=== PATIENT | female | born 1980 | race American Indian/Alaskan Native ===

== ENCOUNTER 2017-09-18 11:30 | Emergency (ER) | payer OTHER ==
[~2017-09-18] VITALS: Ht 160 cm; Wt 83.5 kg
[~2017-09-18 11:30] MED LIST: Guaifenesin Dm118 ML PO; Pseudoephedrine30 MG PO
[2017-09-18 12:07] LABS: BASOPHILS ABSOLUTE AUTO 0.02 K/mm3 (0.00-0.23); BASOPHILS PERCENT AUTO 0 % (0-2); EOSINOPHILS ABSOLUTE AUTO 0.37 K/mm3 (0.00-0.68); EOSINOPHILS PERCENT AUTO 5 % (0-6); Hematocrit 30.3 % (33.0-51.0); Hemoglobin 9.2 g/dL (11.5-16.0); IMMATURE GRAN ABSOLUTE AUTO 0.02 K/mm3 (0.00-0.10); IMMATURE GRAN PERCENT AUTO 0 % (0-1); LYMPHOCYTES ABSOLUTE AUTO 1.87 K/mm3 (0.84-5.20); LYMPHOCYTES PERCENT AUTO 24 % (21-46); MONOCYTES ABSOLUTE AUTO 0.73 K/mm3 (0.16-1.47); MONOCYTES PERCENT AUTO 9 % (4-13); Mean Corpuscular HGB 24.3 pg (26.0-34.0); Mean Corpuscular HGB Conc 30.4 g/dL (31.5-36.5); Mean Corpuscular Volume 80 fL (80-100); Mean Platelet Volume 8.8 fL (9.1-12.4); NEUTROPHILS ABSOLUTE AUTO 4.76 K/mm3 (1.96-9.15); NEUTROPHILS PERCENT AUTO 61 % (41-73); Platelet Count 395 K/mm3 (150-400); RDW Coefficient Variation 15.3 % (11.7-14.2); RDW Standard Deviation 44.5 fL (35.1-46.3); Red Blood Cell Count 3.78 M/mm3 (3.80-5.20); White Blood Cell Count 7.77 K/mm3 (4.00-11.30)
[2017-09-18 12:29] LABS: Alanine Aminotransfer (ALT/SGP 13 U/L (12-78); Albumin, Blood 3.2 g/dL (3.4-5.0); Albumin/Globulin Ratio 0.8 (0.8-1.8); Alk Phos 69 U/L (50-136); Anion Gap 7 mmol/L (6-16); Aspartate Aminotrans (AST/SGOT 12 U/L (12-37); Bilirubin, Total 0.4 mg/dL (0.1-1.0); Blood Urea Nitrogen 7 mg/dL (8-24); Bun/Creatinine Ratio 11.9 (12.0-20.0); CO2, Blood 28 mmol/L (21-32); Calcium, Blood 8.3 mg/dL (8.5-10.1); Chloride, Blood 103 mmol/L (98-108); Creatinine, Blood 0.59 mg/dL (0.40-1.00); Globulin, Blood 4.1 g/dL (2.2-4.0); Glomerular Filtration Rate >60 (60-); Glucose, Blood 107 mg/dL (70-99); Potassium, Blood 3.3 mmol/L (3.5-5.5); Sodium, Blood 138 mmol/L (136-145); Total Protein, Blood 7.3 g/dL (6.4-8.2)
[2017-09-18 12:39] LABS: Source, Urine Clean Catch
[2017-09-18 12:49] LABS: Bilirubin, Urine Neg (Neg); Blood, Urine 5+ (Neg); Glucose Qualitative, Urine Neg (Neg); Ketones, Urine 2+ (Neg); Leukocyte Esterase, Urine 1+ (Neg); Nitrite, Urine Neg (Neg); Protein, Urine 2+ (Neg); Specific Gravity, Urine 1.025 (1.003-1.022); Urobilinogen, Urine 1+ (Normal)
[2017-09-18 12:51] LABS: Appearance, Urine Clear (Clear); Color, Urine Yellow (P-Yellow)
[2017-09-18 12:55] LABS: Bacteria Few /hpf; Mucus Heavy (0-Heavy); Red Blood Cells, Urine TNTC /hpf (0-2); Squamous Epithelial Cells Few /hpf (Few)
[2017-09-18] MEDS ORDERED: Percocet 5-3251 EACH PO (16:40)
[2017-09-18] MEDS ORDERED: Tylenol325 MG PO (16:40)
[2017-12-07] MEDS ORDERED: Norco 10-325 T1 EACH (14:38)
[2017-12-07] MEDS ORDERED: PROM25 (14:40)
[2017-12-07] MEDS ORDERED: ALPR1 (14:40)
== END 2017-09-18 17:03 | disposition home or self-care (01) ==
LOC: ER 11:30
PROVIDERS: Emergency Medicine
DX: R10.2 Pelvic and perineal pain (principal); D64.9 Anemia, unspecified; F17.210 Nicotine dependence, cigarettes, uncomplicated
CPT/HCPCS: 36415; 76830; 76856; 80053; 81001; 83690; 84702; 85025; 87086; 96374; 96375; 96376; 99284; J1170; J1885; J2405

== ENCOUNTER → 2017-10-20 | Outpatient (CLI) | payer OTHER ==
[~2017-10-20] MED LIST changes: +Percocet 5-3251 EACH PO; +Tylenol325 MG PO
[2017-10-20 16:31] LABS: BASOPHILS ABSOLUTE AUTO 0.05 K/mm3 (0.00-0.23); BASOPHILS PERCENT AUTO 1 % (0-2); EOSINOPHILS ABSOLUTE AUTO 0.31 K/mm3 (0.00-0.68); EOSINOPHILS PERCENT AUTO 3 % (0-6); Hematocrit 32.4 % (33.0-51.0); Hemoglobin 9.6 g/dL (11.5-16.0); IMMATURE GRAN ABSOLUTE AUTO 0.02 K/mm3 (0.00-0.10); IMMATURE GRAN PERCENT AUTO 0 % (0-1); LYMPHOCYTES ABSOLUTE AUTO 2.86 K/mm3 (0.84-5.20); LYMPHOCYTES PERCENT AUTO 31 % (21-46); MONOCYTES ABSOLUTE AUTO 0.69 K/mm3 (0.16-1.47); MONOCYTES PERCENT AUTO 8 % (4-13); Mean Corpuscular HGB 23.2 pg (26.0-34.0); Mean Corpuscular HGB Conc 29.6 g/dL (31.5-36.5); Mean Corpuscular Volume 79 fL (80-100); Mean Platelet Volume 9.1 fL (9.1-12.4); NEUTROPHILS ABSOLUTE AUTO 5.33 K/mm3 (1.96-9.15); NEUTROPHILS PERCENT AUTO 58 % (41-73); Platelet Count 475 K/mm3 (150-400); RDW Coefficient Variation 15.5 % (11.7-14.2); RDW Standard Deviation 44.4 fL (35.1-46.3); Red Blood Cell Count 4.13 M/mm3 (3.80-5.20); White Blood Cell Count 9.26 K/mm3 (4.00-11.30)
== END ==
LOC: LAB SHORT 15:03 → OLS 15:03
PROVIDERS: Nurse Practitioner Women's Health
DX: D50.8 Other iron deficiency anemias (principal); N92.1 Excessive and frequent menstruation with irregular cycle
CPT/HCPCS: 36415; 84443; 85025

== ENCOUNTER → 2017-11-23 | Outpatient (CLI) | payer OTHER | END | disposition home or self-care (01) | LOC: PLD 11:48 → LAB SHORT 11:48 | DX: N94.89 Other specified conditions associated with female genital organs and menstrual cycle (principal) | CPT/HCPCS: 88305 ==

== ENCOUNTER → 2018-03-17 | Outpatient (CLI) | payer OTHER ==
[~2018-03-17] MED LIST changes: +ALPR1; +Norco 10-325 T1 EACH; +PROM25
[2018-03-17 11:12] LABS: BASOPHILS ABSOLUTE AUTO 0.04 K/mm3 (0.00-0.23); BASOPHILS PERCENT AUTO 1 % (0-2); EOSINOPHILS ABSOLUTE AUTO 0.28 K/mm3 (0.00-0.68); EOSINOPHILS PERCENT AUTO 6 % (0-6); Hematocrit 35.7 % (33.0-51.0); Hemoglobin 11.1 g/dL (11.5-16.0); IMMATURE GRAN ABSOLUTE AUTO 0.01 K/mm3 (0.00-0.10); IMMATURE GRAN PERCENT AUTO 0 % (0-1); LYMPHOCYTES ABSOLUTE AUTO 1.24 K/mm3 (0.84-5.20); LYMPHOCYTES PERCENT AUTO 26 % (21-46); MONOCYTES ABSOLUTE AUTO 0.45 K/mm3 (0.16-1.47); MONOCYTES PERCENT AUTO 9 % (4-13); Mean Corpuscular HGB 23.6 pg (26.0-34.0); Mean Corpuscular HGB Conc 31.1 g/dL (31.5-36.5); Mean Corpuscular Volume 76 fL (80-100); NEUTROPHILS PERCENT AUTO 58 % (41-73); Platelet Count 370 K/mm3 (150-400); RDW Coefficient Variation 18.1 % (11.7-14.2); RDW Standard Deviation 49.3 fL (35.1-46.3); Red Blood Cell Count 4.71 M/mm3 (3.80-5.20); White Blood Cell Count 4.82 K/mm3 (4.00-11.30)
[2018-03-17 11:32] LABS: Anion Gap 7 mmol/L (6-16); Blood Urea Nitrogen 11 mg/dL (8-24); Bun/Creatinine Ratio 17.2 (12.0-20.0); CO2, Blood 27 mmol/L (21-32); Calcium, Blood 9.1 mg/dL (8.5-10.1); Chloride, Blood 105 mmol/L (98-108); Creatinine, Blood 0.64 mg/dL (0.40-1.00); Glomerular Filtration Rate >60 (60-); Glucose, Blood 117 mg/dL (70-99); Sodium, Blood 139 mmol/L (136-145); Thyroid Stimulating Hormone 0.253 uIU/mL (0.360-4.800)
[2018-03-17 11:45] LABS: Troponin I <0.017 ng/mL (0.000-0.040)
== END | disposition home or self-care (01) ==
LOC: LAB EV 11:06 → LAB SHORT 11:06
PROVIDERS: Physician Assistant Surgical
DX: R07.9 Chest pain, unspecified (principal); R53.83 Other fatigue
CPT/HCPCS: 80048; 84443; 84484; 85025

== ENCOUNTER → 2021-07-09 | Outpatient (CLI) | payer OTHER ==
[~2021-07-09] MED LIST changes: +CRUTCH4 XX; +Naprosyn500 MG PO
[2021-07-09 13:59] LABS: Source, Urine Clean Catch
[2021-07-09 15:13] LABS: Appearance, Urine Clear (Clear); Bilirubin, Urine Neg (Neg); Blood, Urine Neg (Neg); Color, Urine Yellow (P-Yellow); Glucose Qualitative, Urine Neg (Neg); Ketones, Urine Neg (Neg); Leukocyte Esterase, Urine 2+ (Neg); Nitrite, Urine Neg (Neg); Protein, Urine 1+ (Neg); Specific Gravity, Urine 1.015 (1.003-1.022); Urobilinogen, Urine NORM (Normal)
[2021-07-09 15:34] LABS: Amorphous Heavy (0-Heavy); Bacteria Many /hpf; Mucus Light (0-Heavy); Red Blood Cells, Urine 0-2 /hpf (0-2); Squamous Epithelial Cells Few /hpf (Few)
== END | disposition home or self-care (01) ==
LOC: LAB SHORT 13:56
PROVIDERS: Obstetrics & Gynecology
DX: Z01.812 Encounter for preprocedural laboratory examination (principal)
CPT/HCPCS: 81001; 87086

== ENCOUNTER 2021-07-23 19:02 | Emergency (ER) | payer OTHER ==
[~2021-07-23] VITALS: Ht 162.6 cm; Wt 73.9 kg
[2021-07-23 19:43] LABS: BASOPHILS ABSOLUTE AUTO 0.04 K/mm3 (0.00-0.23); BASOPHILS PERCENT AUTO 1 % (0-2); EOSINOPHILS ABSOLUTE AUTO 0.46 K/mm3 (0.00-0.68); EOSINOPHILS PERCENT AUTO 7 % (0-6); Hematocrit 37.5 % (33.0-51.0); Hemoglobin 12.5 g/dL (11.5-16.0); IMMATURE GRAN ABSOLUTE AUTO 0.02 K/mm3 (0.00-0.10); IMMATURE GRAN PERCENT AUTO 0 % (0-1); LYMPHOCYTES ABSOLUTE AUTO 2.63 K/mm3 (0.84-5.20); LYMPHOCYTES PERCENT AUTO 38 % (21-46); MONOCYTES PERCENT AUTO 9 % (4-13); Mean Corpuscular HGB 28.7 pg (26.0-34.0); Mean Corpuscular HGB Conc 33.3 g/dL (31.5-36.5); Mean Corpuscular Volume 86 fL (80-100); Mean Platelet Volume 9.5 fL (9.1-12.4); NEUTROPHILS ABSOLUTE AUTO 3.14 K/mm3 (1.96-9.15); NEUTROPHILS PERCENT AUTO 46 % (41-73); Platelet Count 302 K/mm3 (150-400); RDW Coefficient Variation 13.3 % (11.7-14.2); RDW Standard Deviation 42.1 fL (35.1-46.3); Red Blood Cell Count 4.36 M/mm3 (3.80-5.20); White Blood Cell Count 6.89 K/mm3 (4.00-11.30)
[2021-07-23 19:55] LABS: Source, Urine Clean Catch
[2021-07-23 20:00] LABS: Bilirubin, Urine Neg (Neg); Blood, Urine 5+ (Neg); Glucose Qualitative, Urine Neg (Neg); Ketones, Urine Neg (Neg); Leukocyte Esterase, Urine 1+ (Neg); Nitrite, Urine Neg (Neg); Protein, Urine 2+ (Neg); Urobilinogen, Urine NORM (Normal)
[2021-07-23 20:01] LABS: Alanine Aminotransfer (ALT/SGP 18 U/L (12-78); Albumin, Blood 3.2 g/dL (3.4-5.0); Albumin/Globulin Ratio 0.9 (0.8-1.8); Alk Phos 70 U/L (50-136); Anion Gap 4 mmol/L (6-16); Aspartate Aminotrans (AST/SGOT 14 U/L (12-37); Bilirubin, Total 0.2 mg/dL (0.1-1.0); Blood Urea Nitrogen 12 mg/dL (8-24); Bun/Creatinine Ratio 20.3 (12.0-20.0); CO2, Blood 26 mmol/L (21-32); Calcium, Blood 8.7 mg/dL (8.5-10.1); Chloride, Blood 111 mmol/L (98-108); Creatinine, Blood 0.59 mg/dL (0.40-1.00); Globulin, Blood 3.7 g/dL (2.2-4.0); Glomerular Filtration Rate >60 (60-); Glucose, Blood 100 mg/dL (70-99); Potassium, Blood 3.8 mmol/L (3.5-5.5); Sodium, Blood 141 mmol/L (136-145); Total Protein, Blood 6.9 g/dL (6.4-8.2)
[2021-07-23 20:12] LABS: Appearance, Urine Cloudy (Clear); Color, Urine Yellow (P-Yellow)
[2021-07-23 20:20] LABS: Bacteria Few /hpf; Red Blood Cells, Urine TNTC /hpf (0-2); Squamous Epithelial Cells Few /hpf (Few); White Blood Cells, Urine 0-2 /hpf (0-5)
== END 2021-07-23 21:56 | disposition left against medical advice (07) ==
LOC: ER 19:02
PROVIDERS: Student in an Organized Health Care Education/Training Program
DX: Z53.21 Procedure and treatment not carried out due to patient leaving prior to being seen by health care provider (principal)
CPT/HCPCS: 80053; 81001; 81025; 83690; 85025; 86850; 86900; 86901; 87086

== ENCOUNTER → 2021-08-06 | Outpatient (CLI) | payer OTHER ==
[2021-08-06 17:40] LABS: Source, Urine Clean Catch
[2021-08-06 19:15] LABS: Bilirubin, Urine Neg (Neg); Blood, Urine Neg (Neg); Color, Urine Yellow (P-Yellow); Glucose Qualitative, Urine Neg (Neg); Ketones, Urine Neg (Neg); Leukocyte Esterase, Urine Neg (Neg); Nitrite, Urine Neg (Neg); Protein, Urine Neg (Neg); Specific Gravity, Urine 1.015 (1.003-1.022); Urobilinogen, Urine NORM (Normal)
[2021-08-06 19:40] LABS: Appearance, Urine Hazy (Clear); Bacteria Mod /hpf; Mucus Light (0-Heavy); Red Blood Cells, Urine 0-2 /hpf (0-2); Squamous Epithelial Cells Few /hpf (Few); White Blood Cells, Urine 0-2 /hpf (0-5)
== END ==
LOC: LAB SHORT 16:57
PROVIDERS: Obstetrics & Gynecology
DX: Z01.818 Encounter for other preprocedural examination (principal)
CPT/HCPCS: 81001

== ENCOUNTER 2021-08-11 07:02 | Day surgery (SDC) | payer OTHER ==
[~2021-08-11] VITALS: Ht 162.6 cm; Wt 75.6 kg
[2021-08-11] MEDS ORDERED: Hydroxyzine HCl50 MG (07:22)
[2021-08-11] MEDS ORDERED: PROM25 PO (07:23)
--- NOTE | 2021-08-11 11:39 | NUR ---
ARRIVAL TO UNIT PT ARRIVED TO UNIT FROM PACU, [id number] A LITTLE GROGGY. TOLERATING PO WATER AND CRACKERS WELL. PAIN TOLERABLE AT 3/10. PT WILL CALL IF PAIN STARTS TO INCREASE. PT REPORTS SLIGHT URGE TO VOID BUT DOES NOT WANT TO STAND JUST YET. CALL LIGHT IN REACH, CURRENTLY ASLEEP IN BED. JUDSON PAD SCANT DRAINAGE ON ARRIVAL.
--- NOTE | 2021-08-11 13:38 | NUR ---
PT AMBULATED TO RESTROOM. PAIN INCREASED TO 4/10 BUT STILL TOLERABLE. NO NAUSEA. TOLERATING PO AT THIS TIME.
[2021-08-11] MEDS ORDERED: OXYC5 PO (13:44)
--- NOTE | 2021-08-11 14:29 | NUR ---
DISCHARGE. S/P [facility] PT PAIN 10/12. WELL CONTROLLED WITH PO PAIN MEDICATIONS. SMALL AMOUNT OF DRAINAGE ON JUDSON PAD FROM PACU. CHANGED BY PT WITH VOID. TOLERATING PO WELL, NO NAUSEA. PT WANTED TO DISCHARGE. ALL INSTRUCTIONS GONE OVER WITH PATIENT. SHE DENIED FURTHER QUESTIONS. ALL BELONGINGS SENT WITH PATIENT.
--- NOTE | 2021-08-12 15:31 | NUR ---
08/12/21 1531 Marcy Tanner VERIFICATIONS: EDIT CHART.
== END 2021-08-11 14:25 | disposition home or self-care (01) ==
LOC: ORSCMMR 07:02 → SURS 11:11 → ORSCMMR 14:25
DX: N92.0 Excessive and frequent menstruation with regular cycle (principal); N83.292 Other ovarian cyst, left side; D25.9 Leiomyoma of uterus, unspecified; N80.0 Endometriosis of uterus; D28.2 Benign neoplasm of uterine tubes and ligaments; N81.6 Rectocele; F17.210 Nicotine dependence, cigarettes, uncomplicated; F41.9 Anxiety disorder, unspecified; Z79.899 Other long term (current) drug therapy
CPT/HCPCS: 86850; 86900; 86901; 88307; A9270; J0171; J0690; J1100; J1885; J2250; J2405; J2704; J3010; J7120

== ENCOUNTER 2022-03-13 17:18 | Emergency (ER) | payer BC, OTHER ==
[~2022-03-13] VITALS: Ht 162.6 cm; Wt 77.1 kg
[~2022-03-13 17:18] MED LIST changes: +Hydroxyzine HCl50 MG; +OXYC5 PO; +PROM25 PO
[2022-03-13] MEDS ORDERED: Valium5 MG PO (19:03)
[2022-03-13] MEDS ORDERED: IBUP600 PO (19:03)
[2022-03-13] MEDS ORDERED: HYDR1TAB94 PO (19:03)
== END 2022-03-13 19:14 | disposition home or self-care (01) ==
LOC: ER 17:18
DX: M54.50 Low back pain, unspecified (principal); E05.90 Thyrotoxicosis, unspecified without thyrotoxic crisis or storm; F17.290 Nicotine dependence, other tobacco product, uncomplicated; Z79.899 Other long term (current) drug therapy
CPT/HCPCS: J1885; J3360

== ENCOUNTER 2023-01-19 16:00 | Emergency (ER) | payer OTHER ==
[~2023-01-19] VITALS: Ht 162.6 cm; Wt 75.8 kg
[~2023-01-19 16:00] MED LIST changes: +HYDR1TAB94 PO; +IBUP600 PO; +Macrobid 100 M100 MG PO; +Valium5 MG PO
[2023-01-19 16:41] LABS: BASOPHILS ABSOLUTE AUTO 0.05 K/mm3 (0.00-0.23); BASOPHILS PERCENT AUTO 1 % (0-2); EOSINOPHILS ABSOLUTE AUTO 0.47 K/mm3 (0.00-0.68); EOSINOPHILS PERCENT AUTO 5 % (0-6); Hematocrit 35.8 % (33.0-51.0); Hemoglobin 12.1 g/dL (11.5-16.0); IMMATURE GRAN ABSOLUTE AUTO 0.03 K/mm3 (0.00-0.10); IMMATURE GRAN PERCENT AUTO 0 % (0-1); LYMPHOCYTES ABSOLUTE AUTO 2.64 K/mm3 (0.84-5.20); LYMPHOCYTES PERCENT AUTO 25 % (21-46); MONOCYTES ABSOLUTE AUTO 0.66 K/mm3 (0.16-1.47); MONOCYTES PERCENT AUTO 6 % (4-13); Mean Corpuscular HGB 29.3 pg (26.0-34.0); Mean Corpuscular HGB Conc 33.8 g/dL (31.5-36.5); Mean Corpuscular Volume 87 fL (80-100); NEUTROPHILS ABSOLUTE AUTO 6.61 K/mm3 (1.96-9.15); NEUTROPHILS PERCENT AUTO 63 % (41-73); Platelet Count 304 K/mm3 (150-400); RDW Coefficient Variation 12.9 % (11.7-14.2); RDW Standard Deviation 41.3 fL (35.1-46.3); Red Blood Cell Count 4.13 M/mm3 (3.80-5.20); White Blood Cell Count 10.46 K/mm3 (4.00-11.30)
[2023-01-19 17:07] LABS: Albumin, Blood 3.1 g/dL (3.4-5.0); Albumin/Globulin Ratio 0.9 (0.8-1.8); Bilirubin, Total 0.2 mg/dL (0.1-1.0); Bun/Creatinine Ratio 16.9 (12.0-20.0); Calcium, Blood 8.8 mg/dL (8.5-10.1); Creatinine, Blood 0.65 mg/dL (0.40-1.00); Globulin, Blood 3.6 g/dL (2.2-4.0); Potassium, Blood 3.7 mmol/L (3.5-5.5); Total Protein, Blood 6.7 g/dL (6.4-8.2)
[2023-01-19 18:55] VITALS: BP 108/70
== END 2023-01-19 18:56 | disposition left against medical advice (07) ==
LOC: ER 16:00
PROVIDERS: Student in an Organized Health Care Education/Training Program
DX: R10.32 Left lower quadrant pain (principal); R11.0 Nausea; R19.7 Diarrhea, unspecified; Z53.21 Procedure and treatment not carried out due to patient leaving prior to being seen by health care provider
CPT/HCPCS: 76830; 76856; 80053; 83690; 85025; 93005; 93010; 99283-25

== ENCOUNTER 2023-01-28 10:05 | Day surgery (SDC) | payer OTHER ==
[~2023-01-28] VITALS: Ht 162.6 cm; Wt 76.1 kg
[2023-01-28] MEDS ORDERED: Hydroxyzine HCl50 MG (10:24)
[2023-01-28 13:00] VITALS: BP 108/64
== END 2023-01-28 12:59 | disposition home or self-care (01) ==
LOC: ORSCSDS 10:05
PROVIDERS: Internal Medicine Gastroenterology
PROC: 0DBP8ZX Excision of Rectum, Via Natural or Artificial Opening Endoscopic, Diagnostic (ICD-10-PCS; principal; 2023-01-28 11:15)
PROC: 0DBN8ZX Excision of Sigmoid Colon, Via Natural or Artificial Opening Endoscopic, Diagnostic (ICD-10-PCS; principal; 2023-01-28 11:15)
PROC: 0DBE8ZX Excision of Large Intestine, Via Natural or Artificial Opening Endoscopic, Diagnostic (ICD-10-PCS; principal; 2023-01-28 11:15)
PROC: 0DBM8ZX Excision of Descending Colon, Via Natural or Artificial Opening Endoscopic, Diagnostic (ICD-10-PCS; principal; 2023-01-28 11:15)
PROC: 0DBL8ZX Excision of Transverse Colon, Via Natural or Artificial Opening Endoscopic, Diagnostic (ICD-10-PCS; principal; 2023-01-28 11:15)
DX: K62.5 Hemorrhage of anus and rectum (principal); D12.3 Benign neoplasm of transverse colon; K52.9 Noninfective gastroenteritis and colitis, unspecified; K63.5 Polyp of colon; K59.00 Constipation, unspecified; K64.8 Other hemorrhoids; F17.210 Nicotine dependence, cigarettes, uncomplicated; Z79.899 Other long term (current) drug therapy
CPT/HCPCS: 88305; J2704; J7120

== ENCOUNTER → 2024-03-24 | Outpatient (CLI) | payer OTHER ==
[2024-03-24 16:07] LABS: Source, Urine Clean Catch
[2024-03-24 17:29] LABS: Appearance, Urine Clear (Clear); Bilirubin, Urine Neg (Neg); Blood, Urine Neg (Neg); Color, Urine Yellow (P-Yellow); Glucose Qualitative, Urine Neg (Neg); Ketones, Urine Neg (Neg); Leukocyte Esterase, Urine Neg (Neg); Nitrite, Urine Neg (Neg); Protein, Urine Neg (Neg); Specific Gravity, Urine 1.025 (1.003-1.022); Urobilinogen, Urine NORM (Normal)
== END ==
LOC: LAB SHORT 16:05 → LAB 16:05
PROVIDERS: Obstetrics & Gynecology
DX: R39.9 Unspecified symptoms and signs involving the genitourinary system (principal)
CPT/HCPCS: 81003

== ENCOUNTER → 2024-03-28 | Outpatient (CLI) | payer OTHER ==
[2024-03-28 14:52] LABS: Follicle Stimulating Hormone 10.8 mIU/ml; Thyroid Stimulating Hormone 2.52 uIU/mL (0.360-4.800)
== END | disposition home or self-care (01) ==
LOC: LAB 11:34 → LAB SHORT 11:34
PROVIDERS: Obstetrics & Gynecology
DX: E89.41 Symptomatic postprocedural ovarian failure (principal)
CPT/HCPCS: 83001; 84443

== ENCOUNTER 2024-07-23 12:12 | Emergency (ER) | payer OTHER ==
[~2024-07-23] VITALS: Ht 162.6 cm; Wt 79.8 kg
[2024-07-23 12:56] LABS: BASOPHILS ABSOLUTE AUTO 0.04 K/mm3 (0.00-0.23); BASOPHILS PERCENT AUTO 1 % (0-2); EOSINOPHILS ABSOLUTE AUTO 0.24 K/mm3 (0.00-0.68); EOSINOPHILS PERCENT AUTO 4 % (0-6); Hematocrit 37.9 % (33.0-51.0); Hemoglobin 12.8 g/dL (11.5-16.0); IMMATURE GRAN ABSOLUTE AUTO 0.02 K/mm3 (0.00-0.10); IMMATURE GRAN PERCENT AUTO 0 % (0-1); LYMPHOCYTES ABSOLUTE AUTO 2.34 K/mm3 (0.84-5.20); LYMPHOCYTES PERCENT AUTO 37 % (21-46); MONOCYTES ABSOLUTE AUTO 0.47 K/mm3 (0.16-1.47); MONOCYTES PERCENT AUTO 7 % (4-13); Mean Corpuscular HGB 28.9 pg (26.0-34.0); Mean Corpuscular HGB Conc 33.8 g/dL (31.5-36.5); Mean Corpuscular Volume 86 fL (80-100); NEUTROPHILS ABSOLUTE AUTO 3.21 K/mm3 (1.96-9.15); NEUTROPHILS PERCENT AUTO 51 % (41-73); Platelet Count 321 K/mm3 (150-400); RDW Coefficient Variation 13.6 % (11.7-14.2); RDW Standard Deviation 42.5 fL (35.1-46.3); Red Blood Cell Count 4.43 M/mm3 (3.80-5.20); White Blood Cell Count 6.32 K/mm3 (4.00-11.30)
[2024-07-23 13:17] LABS: Albumin, Blood 3.3 g/dL (3.4-5.0); Albumin/Globulin Ratio 0.9 (0.8-1.8); Bilirubin, Total 0.5 mg/dL (0.1-1.0); Bun/Creatinine Ratio 15.3 (12.0-20.0); Calcium, Blood 8.4 mg/dL (8.5-10.1); Creatinine, Blood 0.59 mg/dL (0.40-1.00); Globulin, Blood 3.8 g/dL (2.2-4.0); Potassium, Blood 3.8 mmol/L (3.5-5.5); Total Protein, Blood 7.1 g/dL (6.4-8.2)
[2024-07-23 14:03] LABS: Source, Urine Clean Catch
[2024-07-23 14:08] LABS: Appearance, Urine Clear (Clear); Bilirubin, Urine Neg (Neg); Blood, Urine Neg (Neg); Color, Urine Amber (P-Yellow); Glucose Qualitative, Urine Neg (Neg); Ketones, Urine Neg (Neg); Leukocyte Esterase, Urine Neg (Neg); Nitrite, Urine Neg (Neg); Protein, Urine 1+ (Neg); Urobilinogen, Urine 2+ (Normal); pH, Urine 6.5 (5.0-8.0)
[2024-07-23] MEDS ORDERED: Morphine Sulfate 4 MG/1 ML Injection IV ONE (16:20)
[2024-07-23 17:00] VITALS: BP 125/80
[2024-07-24] MEDS ORDERED: GABA300 PO ×2 (14:57)
[2024-07-24] MEDS ORDERED: Prozac20 MG PO ×2 (14:58)
== END 2024-07-23 17:23 | disposition home or self-care (01) ==
LOC: ER 12:12
PROVIDERS: Physician Assistant
DX: K92.2 Gastrointestinal hemorrhage, unspecified (principal)
CPT/HCPCS: 36415; 74177; 80048; 80053; 84703; 85025; 96374; 96374-59; 96375; 96376; 99285; 99285-25; A9270; G0378; J2250; J2270; J2704; J3010; J7120; Q9967

== ENCOUNTER 2024-07-24 12:36 | Observation (INO) | payer OTHER ==
[~2024-07-24] VITALS: Ht 162.6 cm; Wt 80.5 kg
[2024-07-24] MEDS ORDERED: GABA300 PO ×2 (14:57)
[2024-07-24] MEDS ORDERED: Prozac20 MG PO ×2 (14:58)
[2024-07-24 15:59] LABS: BASOPHILS ABSOLUTE AUTO 0.06 K/mm3 (0.00-0.23); BASOPHILS PERCENT AUTO 1 % (0-2); EOSINOPHILS ABSOLUTE AUTO 0.63 K/mm3 (0.00-0.68); EOSINOPHILS PERCENT AUTO 8 % (0-6); Hematocrit 37.8 % (33.0-51.0); Hemoglobin 12.4 g/dL (11.5-16.0); IMMATURE GRAN ABSOLUTE AUTO 0.04 K/mm3 (0.00-0.10); IMMATURE GRAN PERCENT AUTO 1 % (0-1); LYMPHOCYTES ABSOLUTE AUTO 3.58 K/mm3 (0.84-5.20); LYMPHOCYTES PERCENT AUTO 42 % (21-46); MONOCYTES PERCENT AUTO 8 % (4-13); Mean Corpuscular HGB 28.4 pg (26.0-34.0); Mean Corpuscular HGB Conc 32.8 g/dL (31.5-36.5); Mean Corpuscular Volume 87 fL (80-100); Mean Platelet Volume 9.5 fL (9.1-12.4); NEUTROPHILS ABSOLUTE AUTO 3.43 K/mm3 (1.96-9.15); NEUTROPHILS PERCENT AUTO 41 % (41-73); Platelet Count 274 K/mm3 (150-400); RDW Coefficient Variation 13.9 % (11.7-14.2); RDW Standard Deviation 43.9 fL (35.1-46.3); Red Blood Cell Count 4.37 M/mm3 (3.80-5.20); White Blood Cell Count 8.44 K/mm3 (4.00-11.30)
[2024-07-24 16:25] LABS: Bun/Creatinine Ratio 15.4 (12.0-20.0); Calcium, Blood 8.7 mg/dL (8.5-10.1); Creatinine, Blood 0.65 mg/dL (0.40-1.00); Potassium, Blood 3.8 mmol/L (3.5-5.5)
[2024-07-24] MEDS ORDERED: Ondansetron 4 MG TAB PO PRN (17:00)
[2024-07-24] MEDS ORDERED: FLU VACC TS2024-25(6MOS UP)/PF 45 MCG/0.5 ML SYRINGE IM SCH (17:00)
[2024-07-24] MEDS ORDERED: Acetaminophen 325 MG TABLET PO PRN (17:40)
[2024-07-24 19:53] VITALS: BP 135/68
--- NOTE | 2024-07-24 20:24 | NUR ---
1999 PT ARRIVED TO ROOM FROM ER IN STABLE CONDITION, SPOUSE IS WITH PT. PT REPORTS L SIDE ABD PAIN, NOTHING HAS BEEN GIVEN FROM ER, PT DOES NOT FEEL LIKE THE TYLENOL ORDERED WILL HELP, WILL CALL DR FOR DIFFERENT PAIN MEDS. PT REPORTS NAUSEA, WILL GIVE ZOFRAN AND EVAL FOR EFFECT. PT REPORTS DIARRHEA X 1 TODAY, BLOOD IN STOOL. DR AWARE. PT WOULD LIKE TO ALSO TRY A HEATING PAD FOR PAIN RELIEF, WILL MONITOR FOR EFFECT. NO OTHER APPARENT SIGNS OF DISTRESS. CALL LIGHT IS IN REACH.
[2024-07-24] MEDS ORDERED: FentaNYL Citrate 50 MCG/ML 2 ML Injection IV PRN (20:25)
[2024-07-24] MEDS ORDERED: Gabapentin 300 MG Cap PO SCH (21:00)
[2024-07-25] VITALS (24 sets, daily range): BP systolic 77–135; BP diastolic 48–79
--- NOTE | 2024-07-25 01:13 | NUR ---
0000 PT LYING IN BED, EYES CLOSED, APPEARS TO BE RESTING. BREATHING IS EVEN, UNLABORED. NO APPARENT SIGNS OF DISTRESS. CALL LIGHT IS IN REACH. HEATING PAD ON ABD.
--- NOTE | 2024-07-25 01:44 | NUR ---
PT IS LYING IN BED, EYES CLOSED, APPEARS TO BE RESTING. BREATHING IS EVEN, UNLABORED. NO APPARENT SIGNS OF DISTRESS. HEATING PAD IS IN USE. CALL LIGHT IS IN REACH.
--- NOTE | 2024-07-25 04:35 | NUR ---
PT LYING IN BED, EYES CLOSED, APPEARS TO BE RESTING. BREATHING IS EVEN, UNLABORED. NO APPARENT SIGNS OF DISTRESS. CALL LIGHT IS IN REACH. HEATING PAD IS IN USE.
--- NOTE | 2024-07-25 04:35 | NUR ---
PT IS AAO X 4, ON RA. REPORTS L SIDE ABD PAIN AND NAUSEA, GOT ZOFRAN AND FENTANYL X 2.
--- NOTE | 2024-07-25 05:56 | NUR ---
PT REQUESTING PAIN MEDS, WILL GIVE MEDS AND EVAL FOR EFFECT. NO OTHER APPARENT SIGNS OF DISTRESS. CALL LIGHT IS IN REACH. NO OTHER CHANGES THIS SHIFT.
[2024-07-25] MEDS ORDERED: Sodium, Potassium,Mag Sulfates 354 ML PO SCH (07:00)
[2024-07-25 07:02] LABS: BASOPHILS ABSOLUTE AUTO 0.06 K/mm3 (0.00-0.23); BASOPHILS PERCENT AUTO 1 % (0-2); EOSINOPHILS ABSOLUTE AUTO 0.65 K/mm3 (0.00-0.68); EOSINOPHILS PERCENT AUTO 8 % (0-6); Hematocrit 38.7 % (33.0-51.0); Hemoglobin 12.7 g/dL (11.5-16.0); IMMATURE GRAN ABSOLUTE AUTO 0.05 K/mm3 (0.00-0.10); IMMATURE GRAN PERCENT AUTO 1 % (0-1); LYMPHOCYTES ABSOLUTE AUTO 3.46 K/mm3 (0.84-5.20); LYMPHOCYTES PERCENT AUTO 43 % (21-46); MONOCYTES ABSOLUTE AUTO 0.69 K/mm3 (0.16-1.47); MONOCYTES PERCENT AUTO 9 % (4-13); Mean Corpuscular HGB 28.6 pg (26.0-34.0); Mean Corpuscular HGB Conc 32.8 g/dL (31.5-36.5); Mean Corpuscular Volume 87 fL (80-100); Mean Platelet Volume 9.4 fL (9.1-12.4); NEUTROPHILS ABSOLUTE AUTO 3.06 K/mm3 (1.96-9.15); NEUTROPHILS PERCENT AUTO 38 % (41-73); Platelet Count 311 K/mm3 (150-400); RDW Coefficient Variation 14.1 % (11.7-14.2); RDW Standard Deviation 45.1 fL (35.1-46.3); Red Blood Cell Count 4.44 M/mm3 (3.80-5.20); White Blood Cell Count 7.97 K/mm3 (4.00-11.30)
[2024-07-25 07:20] LABS: Bun/Creatinine Ratio 13.9 (12.0-20.0); Calcium, Blood 8.6 mg/dL (8.5-10.1); Creatinine, Blood 0.58 mg/dL (0.40-1.00); Potassium, Blood 3.8 mmol/L (3.5-5.5)
[2024-07-25] MEDS ORDERED: FLUoxetine HCL 20 MG CAP PO SCH (09:00)
--- NOTE | 2024-07-25 11:46 | NUR ---
PT C/O 12/12 PAIN. TREATED PER EMAR. PT PAIN NOT WELL CONTROLLED, DR. EVANS NOTIFIED. TO PLACE ORDERS IF INDICATED
[2024-07-25] MEDS ORDERED: HYDROcodone 5-APAP 325 TAB PO PRN (11:50)
--- NOTE | 2024-07-25 15:05 | NUR ---
PT HR 48, PER PT, THIS IS NOT NORMAL FOR HER. DR. PECK NOTIFIED OF CONCERN. TELE ORDERED TO BETTER MONITOR
[2024-07-25] MEDS ORDERED: Lactated Ringer's 1,000 ML IV SCH (17:35)
[2024-07-25] MEDS ORDERED: propofoL 20 ML IV ONE (17:37)
--- NOTE | 2024-07-25 17:41 | NUR ---
07/25/24 174 Gris Low CONFIRMED AND REVIEWED H&P, MEDCICATIONS, ALLERGIES, MEDICAL HISTORY, RESPIRATORY HISTORY, VITAL SIGNS, 3-LEAD EKG, CONSENTS, AND PHYSICIAN ORDERS. PATIENT CONFIRMS NPO STATUS AND AGREES WITH SCHEDULED PROCEDURE. MONITOR INTACT WITH CONTINUOUS PULSE OXIMETRY, CAPNOGRAPHY, 3-LEAD EKG, INTERMITTENT BP. SUPPLEMENTAL O2 TO BE TITRATED THROUGHOUT PROCEDURE TO MAINTAIN O2 SATURATION ABOVE 90%. PATIENT DETERMINED TO BE ASA APPROPRIATE FOR PROPOFOL SEDATION PRIOR TO START OF PROCEDURE BY DR. SOUSA.
[2024-07-25] MEDS ORDERED: Midazolam HCl 1MG / ML 2ML Vial ONE (17:51)
[2024-07-25] MEDS ORDERED: Glycopyrrolate 0.2 MG/ML 1MLVIAL ONE (17:55)
[2024-07-25] MEDS ORDERED: ePHEDrine Sulfate 50 MG/ML 1ML Injection ONE (18:03)
--- NOTE | 2024-07-25 19:30 | NUR ---
PT RETURNED FROM PROCEDURE. DROWSY AND PAINFUL. PT ARRIVED TO ROOM DURING NURSE REPORT. PER DR. MERRY MATTHEW TO EAT REGULAR DIET NOW, PLAN FOR DISCHARGE TOMORROW, FAMILY AT BEDSIDE.
[2024-07-26 03:36] VITALS: BP 112/54
--- NOTE | 2024-07-26 03:45 | NUR ---
Pt A&O x4, SBP in low 90-100's, other VS WNL, voiding, up ad alex. Continues to have LLQ abdominal pain requiring fentenyl every 4 hrs through this shift with pain rateing. No notation on what plan is after colonoscopy was negative. Will await rounding and labs.
[2024-07-26 06:08] LABS: BASOPHILS ABSOLUTE AUTO 0.04 K/mm3 (0.00-0.23); BASOPHILS PERCENT AUTO 1 % (0-2); EOSINOPHILS ABSOLUTE AUTO 0.49 K/mm3 (0.00-0.68); EOSINOPHILS PERCENT AUTO 7 % (0-6); Hematocrit 38.1 % (33.0-51.0); Hemoglobin 12.6 g/dL (11.5-16.0); IMMATURE GRAN ABSOLUTE AUTO 0.02 K/mm3 (0.00-0.10); IMMATURE GRAN PERCENT AUTO 0 % (0-1); LYMPHOCYTES ABSOLUTE AUTO 2.66 K/mm3 (0.84-5.20); LYMPHOCYTES PERCENT AUTO 39 % (21-46); MONOCYTES ABSOLUTE AUTO 0.54 K/mm3 (0.16-1.47); MONOCYTES PERCENT AUTO 8 % (4-13); Mean Corpuscular HGB 28.8 pg (26.0-34.0); Mean Corpuscular HGB Conc 33.1 g/dL (31.5-36.5); Mean Corpuscular Volume 87 fL (80-100); Mean Platelet Volume 9.3 fL (9.1-12.4); NEUTROPHILS ABSOLUTE AUTO 3.03 K/mm3 (1.96-9.15); NEUTROPHILS PERCENT AUTO 45 % (41-73); Platelet Count 311 K/mm3 (150-400); RDW Coefficient Variation 13.8 % (11.7-14.2); RDW Standard Deviation 44.1 fL (35.1-46.3); Red Blood Cell Count 4.37 M/mm3 (3.80-5.20); White Blood Cell Count 6.78 K/mm3 (4.00-11.30)
[2024-07-26 06:31] LABS: Bun/Creatinine Ratio 12.5 (12.0-20.0); Calcium, Blood 8.6 mg/dL (8.5-10.1); Creatinine, Blood 0.8 mg/dL (0.40-1.00); Potassium, Blood 4.2 mmol/L (3.5-5.5)
[2024-07-26 07:57] VITALS: BP 114/66
[2024-07-26] MEDS ORDERED: ONDA4 PO ×2 (08:29)
[2024-07-26] MEDS ORDERED: ACET325 PO ×2 (08:29)
[2024-07-26] MEDS ORDERED: Bentyl20 MG PO ×2 (08:31)
[2024-07-26] MEDS ORDERED: Dicyclomine HCl 20 MG Tab PO SCH (09:00)
[2024-07-26] MEDS ORDERED: Mag Hydrox/Al Hydrox/Simeth 18 ML,Lidocaine 2% Viscous Soln 9 ML,Atropine/Scopalam/Hyos... PO ONE (09:20)
[2024-07-26] MEDS ORDERED: Calcium Carbonate 500 MG Tab Chew PO PRN (11:00)
[2024-07-26] MEDS ORDERED: FAMO20 PO ×2 (12:38)
[2024-07-26] MEDS ORDERED: ACET500 PO ×2 (12:38)
[2024-07-26] MEDS ORDERED: Calcium Carbon500 MG PO ×2 (12:41)
--- NOTE | 2024-07-26 14:27 | NUR ---
Patient is lying in bed and alert. She immediately shares about the pain that she has been experiencing for quite some time and her frustration that there have been no answers for why she is having such difficulty. I normalize her feelings and fears and provided prayer. Patient voices her appreciation for the prayers.
--- NOTE | 2024-07-26 17:17 | NUR ---
PT DISCHARGED HOME WITH SPOUSE, PT PLANS TO FOLLOW UP WITH PCP SOON POSSIBLE FOR C/O PERSISTENT ABD PAIN. DISCHARGE INSTRUCTIONS DISCUSSED WITH PT NO QUESTIONS OR CONCERNS WITH DISCHARGE. PT CHOSE TO WALK OUT WITH SPOUSE, NO ASSISTANCE WITH WHEELCHAIR.
== END 2024-07-26 14:55 | disposition home or self-care (01) ==
LOC: ER 12:36 → MEDS 12:39 → ER 16:59 → MEDS 16:59 → ENPENDDIS 07-26 11:20 → MEDS 07-26 14:55
PROVIDERS: Internal Medicine Gastroenterology; Student in an Organized Health Care Education/Training Program; ADMIT Hospitalist
PROC: 0DJD8ZZ Inspection of Lower Intestinal Tract, Via Natural or Artificial Opening Endoscopic (ICD-10-PCS; principal; 2024-07-25 16:00)
DX: K64.4 Residual hemorrhoidal skin tags (principal); K62.5 Hemorrhage of anus and rectum; K59.09 Other constipation; F32.A Depression, unspecified; G47.00 Insomnia, unspecified; F17.290 Nicotine dependence, other tobacco product, uncomplicated; Z79.899 Other long term (current) drug therapy; Z87.19 Personal history of other diseases of the digestive system; Z90.710 Acquired absence of both cervix and uterus
CPT/HCPCS: 36415; 74177; 80048; 80053; 84703; 85025; 96374; 96374-59; 96375; 96376; 99285; 99285-25; A9270; G0378; J2250; J2270; J2704; J3010; J7120; Q9967